=== PATIENT | female | born 1940 | race Caucasian/White ===

== ENCOUNTER 2016-04-03 17:22 | Emergency (ER) | payer OTHER ==
[2016-04-03 17:34] VITALS: BP 154/67; PULSE 79; TEMP 98.9; BMI 35.4
[2016-04-03] MEDS ORDERED: ERYTHROMYCIN 0.5% OPHTHALMIC OINTMENT 3.5 GM TUBE OS STA (18:20)
[2016-04-03] MEDS ORDERED: ACETAMINOPHEN 325 MG TABLET (FP) PO ONE (18:28)
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
[2016-04-03] MEDS ORDERED: ERYTHROMYCIN 0.5% OPHTHALMIC OINTMENT 3.5 GM TUBE ONE (18:32)
[2016-04-03] MEDS ORDERED: ACETAMINOPHEN 325 MG TABLET (FP) ONE (18:32)
== END 2016-04-03 19:06 | disposition home or self-care (01) ==
LOC: JERFT 17:22 → JER 17:22 → JERFT 19:06
DX: S05.02XA Injury of conjunctiva and corneal abrasion without foreign body, left eye, initial encounter (principal); H11.32 Conjunctival hemorrhage, left eye; W20.8XXA Other cause of strike by thrown, projected or falling object, initial encounter; Y93.89 Activity, other specified; Y92.038 Other place in apartment as the place of occurrence of the external cause; E11.9 Type 2 diabetes mellitus without complications; J45.909 Unspecified asthma, uncomplicated
CPT/HCPCS: 99281-25